=== PATIENT | male | born 1960 | race Caucasian/White ===

== ENCOUNTER → 2016-12-19 | Outpatient (REF) | LOC: ZLAB.WCH 19:13 | DX: Z01.89 Encounter for other specified special examinations (principal) | CPT/HCPCS: G0103 ==

== ENCOUNTER 2018-06-27 21:18 | Day surgery (SDC) | payer OTHER ==
[~2018-06-27] VITALS: Ht 182.9 cm; Wt 90.7 kg
--- NOTE | 2018-06-27 21:20 | NUR ---
Pt arrived to room 305, ambulatory, via private vehicle from [facility]. Pt awake, a&o, cooperative c cares. Pt reports continued RLQ ABD "discomfort... not really pain, just uncomfortable". Denies nausea or any other c/o at this time. INT patent. at bedside. Pt/wi oriented to room, unit policies et current POC. Questions invited et answered et both verbalize understanding. Pt s further needs at this time. Call light in reach, will continue c admit process.
[2018-06-27 22:30] VITALS: BP 125/64; PULSE 106; TEMP 98.4
[2018-06-28] VITALS (8 sets, daily range): BP systolic 95–123; BP diastolic 47–69; PULSE 98–126; TEMP 98.1–99.4
[2018-06-28] MEDS ORDERED: LIPITOR 10MG10 MG PO (06:14)
[2018-06-28] MEDS ORDERED: OMNICEF 300MG300 MG PO (06:15)
[2018-06-28] MEDS ORDERED: PROZAC 20MG20 MG PO (06:15)
[2018-06-28] MEDS ORDERED: TUSS PO (06:16)
[2018-06-28] MEDS ORDERED: TESSALON P100 MG/CAP PO (06:17)
--- NOTE | 2018-06-28 07:40 | NUR ---
Pt left the floor at this time for procedure.
--- NOTE | 2018-06-28 09:36 | NUR ---
Pt returned to room 304 via bed with PACU staff. Lap sites X3 are all CDI. Pt is sitting up drinking water and he denies further needs. Call light within reach, will continue to montior.
--- NOTE | 2018-06-28 09:45 | NUR ---
Assessment complete. Pt is drowsy but arrousable to voice. He denies having any pain at this time. Breathing is even and unlabored on 2L via NC. LA infusing, remains free of complications, and is CDI. Lap appy sites X3 are CDI and remain free of complications. Pt's is at the bedside; all questions answered. Pt is resting quietly in the bed at this time and he denies further needs. Call light within reach, will continue to monitor.
--- NOTE | 2018-06-28 16:45 | NUR ---
Pt discharged at this time. LA INT discontinued with the catheter tip intact. Educatino regarding a laproscopic appendectomy, norco, and s/sx's of an adverse reaction provided. Pt and his both verbalize understanding. Pt escourted out bar [id number] with tech. Aparna
== END 2018-06-28 16:45 | disposition home or self-care (01) ==
LOC: PEDS 21:18 → MEDICAL 21:18 → SURG 21:18 → SDCO 21:18 → PEDS 06-28 04:21 → MEDICAL 06-28 04:21 → SDCO 06-28 16:45 → PEDS 06-28 16:45
DX: K35.80 Unspecified acute appendicitis (principal); E78.5 Hyperlipidemia, unspecified
CPT/HCPCS: J0690; J1100; J1885; J2270; J2405; J2543; J2704; J7120

== ENCOUNTER → 2018-07-02 | Outpatient (REF) ==
[~2018-07-02] MED LIST: LIPITOR 10MG10 MG PO; OMNICEF 300MG300 MG PO; PROZAC 20MG20 MG PO; TESSALON P100 MG/CAP PO; TUSS PO
== END ==
LOC: ZLAB.WCH 08:44
DX: Z01.89 Encounter for other specified special examinations (principal)

== ENCOUNTER → 2018-07-04 | Outpatient (CLI) | payer OTHER | LOC: COL.VAS 12:08 | DX: L53.9 Erythematous condition, unspecified (principal); R60.0 Localized edema ==